=== PATIENT | female | born 1950 | race Caucasian/White ===

== ENCOUNTER 2021-05-15 05:28 | Observation (INO) ==
[2021-05-15] MEDS ORDERED: Acetaminophen 325 MG TABLET PO PRN (12:10)
[2021-05-15] MEDS ORDERED: Ondansetron ODT 4 MG TAB.RAPDIS SL PRN (12:10)
[2021-05-15] MEDS ORDERED: Melatonin 3 MG TABLET PO PRN (12:10)
[2021-05-15] MEDS ORDERED: Naloxone 0.4 MG/ML INJ IVP PRN (12:10)
[2021-05-15] MEDS ORDERED: *HR* Promethazine 25 MG/ML VIAL IM PRN (12:10)
[2021-05-15 13:22] LABS: Basophils % 0.4 %; Hematocrit 34.4 % (35.3-44.9); Immature Granulocytes % 0.2 % (0-4); Lymphocytes # 1.2 K/mcL (0.6-4.6); Lymphocytes % 27.5 %; Mean Corpuscular Hemoglobin 29.6 pg (28.0-33.3); Mean Corpuscular Volume 92.5 fL (83.0-100.0); Mean Platelet Volume 12.4 fL (9.4-12.4); Monocytes # 0.5 K/mcL (0.0-1.3); Monocytes % 10.6 %; Neutrophils # 2.8 K/mcL (1.6-8.9); Platelet Count 191 K/mcL (140-400); Red Blood Count 3.72 M/mcL (3.82-4.97); Red Cell Distribution Width 14.4 % (11.5-14.5); Segmented Neutrophils % 61.3 %; White Blood Count 4.5 K/mcL (4.3-11.1)
[2021-05-15 13:40] LABS: BUN/Creatinine Ratio 13 (6-26); Blood Urea Nitrogen 11 mg/dL (8-23); Calcium 8.9 mg/dL (8.6-10.3); Carbon Dioxide 24 mEq/L (23-29); Chloride 110 mEq/L (98-107); Glucose 93 mg/dL (70-105); Osmolality,Calculated 289 (280-300); Potassium 3.3 mEq/L (3.5-5.1); Sodium 140 mEq/L (136-145); eGFR For African Americans > 60 (> 60); eGFR For Non-African Americans > 60 (> 60)
[2021-05-15] MEDS: 0.9 % Sodium Chloride 1,000 ML IVC SCH (17:30)
[2021-05-15] MEDS: *HR* Heparin 5,000 UNIT/ML VIAL SQ SCH (18:44)
[2021-05-16 01:10] LABS: Basophils % 0.3 %; Hematocrit 32.1 % (35.3-44.9); Immature Granulocytes % 0.5 % (0-4); Lymphocytes # 1.4 K/mcL (0.6-4.6); Mean Corpuscular HGB Conc 31.2 g/dL (31.6-35.5); Mean Corpuscular Hemoglobin 29.4 pg (28.0-33.3); Mean Corpuscular Volume 94.4 fL (83.0-100.0); Mean Platelet Volume 12.4 fL (9.4-12.4); Monocytes # 0.5 K/mcL (0.0-1.3); Monocytes % 7.7 %; Platelet Count 184 K/mcL (140-400); Red Cell Distribution Width 14.3 % (11.5-14.5); Segmented Neutrophils % 68.5 %; White Blood Count 5.9 K/mcL (4.3-11.1)
[2021-05-16 01:32] LABS: BUN/Creatinine Ratio 11 (6-26); Blood Urea Nitrogen 9 mg/dL (8-23); Calcium 8.5 mg/dL (8.6-10.3); Carbon Dioxide 24 mEq/L (23-29); Chloride 110 mEq/L (98-107); Glucose 87 mg/dL (70-105); Osmolality,Calculated 288 (280-300); Potassium 3.2 mEq/L (3.5-5.1); Sodium 140 mEq/L (136-145); eGFR For African Americans > 60 (> 60); eGFR For Non-African Americans > 60 (> 60)
[2021-05-16] MEDS: 0.9 % Sodium Chloride 1,000 ML IVC SCH (02:11)
[2021-05-16] MEDS: *HR* Heparin 5,000 UNIT/ML VIAL SQ SCH ×2 (05:25→17:57)
[2021-05-16] MEDS ORDERED: Potassium Chloride 40 MEQ, Lidocaine 1% 2 ML in 0.9 % Sodium Chloride 500 ML IVPB ONE (07:59)
[2021-05-16] MEDS ORDERED: cefTRIAXone 1,000 MG in Water for inj. (sterile) 10 ML IVP ONE (12:00)
[2021-05-16] MEDS ORDERED: *HR* Propofol 200 MG/20 ML VIAL IVP ONE (16:29)
[2021-05-16] MEDS ORDERED: Lidocaine -MPF 2% 2 ML VIAL ONE (16:30)
[2021-05-16] MEDS ORDERED: Ondansetron 4 MG/2 ML VIAL ONE (16:51)
[2021-05-16] MEDS ORDERED: *HR* FentaNYL (PF) 100 MCG/2 ML VIAL ONE (16:51)
[2021-05-16] MEDS ORDERED: Isovue-300 50ML VIAL ONE (17:04)
[2021-05-16] MEDS ORDERED: *HR* Etomidate 40 MG/20 ML VIAL IVP ONE (17:29)
[2021-05-16] MEDS ORDERED: Famotidine 20 MG/2 ML VIAL IVP ONE (18:21)
[2021-05-16] MEDS ORDERED: *HR* OxyCODONE Immed Rel 5 MG TABLET PO PRN (18:21)
[2021-05-16] MEDS ORDERED: *HR* Labetalol 20 MG/4 ML SYRINGE IVP PRN (18:21)
[2021-05-16] MEDS ORDERED: *HR* HYDROmorphone 2 MG TABLET PO PRN (18:21)
[2021-05-16] MEDS ORDERED: Acetaminophen IV 1,000 MG/100 ML BAG IVPB ONE (18:21)
[2021-05-16] MEDS ORDERED: *HR* HYDROmorphone (PF) 1 MG/ML SYRINGE ONE (18:34)
[2021-05-16] MEDS: *HR* HYDROmorphone (PF) 1 MG/ML SYRINGE IVP PRN ×2 (18:35→18:47)
[2021-05-16] MEDS ORDERED: Ondansetron ODT 4 MG TAB.RAPDIS SL PRN (20:17)
[2021-05-16] MEDS ORDERED: Naloxone 0.4 MG/ML INJ IVP PRN (20:17)
[2021-05-16] MEDS ORDERED: *HR* Promethazine 25 MG/ML VIAL IM PRN (20:17)
[2021-05-16] MEDS ORDERED: Acetaminophen 325 MG TABLET PO PRN (20:17)
[2021-05-16] MEDS ORDERED: Melatonin 3 MG TABLET PO PRN (20:17)
[2021-05-17 06:00] LABS: Hematocrit 37.4 % (35.3-44.9); Hemoglobin 11.5 g/dL (11.5-15.4); Mean Corpuscular HGB Conc 30.7 g/dL (31.6-35.5); Mean Corpuscular Volume 94.2 fL (83.0-100.0); Mean Platelet Volume 12.6 fL (9.4-12.4); Platelet Count 216 K/mcL (140-400); Red Blood Count 3.97 M/mcL (3.82-4.97); Red Cell Distribution Width 14.1 % (11.5-14.5)
[2021-05-17] MEDS ORDERED: *HR* Heparin 5,000 UNIT/ML VIAL SQ SCH (06:00)
[2021-05-17 06:34] VITALS: O2SAT 97
[2021-05-17 08:10] LABS: BUN/Creatinine Ratio 13 (6-26); Blood Urea Nitrogen 9 mg/dL (8-23); Carbon Dioxide 18 mEq/L (23-29); Chloride 108 mEq/L (98-107); Glucose 112 mg/dL (70-105); Osmolality,Calculated 285 (280-300); Potassium 4.1 mEq/L (3.5-5.1); Sodium 138 mEq/L (136-145); eGFR For African Americans > 60 (> 60); eGFR For Non-African Americans > 60 (> 60)
[2021-05-17 10:37] VITALS: BP 108/65; PULSE 54; TEMP 97.9
[2021-05-21 13:00] LABS: Calculi Mass 18 mg
== END 2021-05-17 12:30 | disposition home or self-care (01) ==
LOC: 3ANU → SUATTDRO 11:24
PROVIDERS: ADMIT Student in an Organized Health Care Education/Training Program; ATTEND Family Medicine